=== PATIENT | male | born 1955 | race Caucasian/White ===

== ENCOUNTER 2023-09-05 12:38 | Emergency (ER) | payer OTHER, SELFPAY ==
[2023-09-05 12:43] VITALS: BP 196/109
--- NOTE | 2023-09-05 12:51 | ED.GENMED ---
History of Present Illness
General
Chief Complaint: Chest Pain
Time Seen by Provider: 09/05/23 12:51
Travel History
Have you had any contact with someone who has COVID-19?: No
Do you have any symptoms of coronavirus? Fever > 100 degrees, chills, cough, shortness of breath, sore throat, loss of taste or smell, muscle aches, or headache?: No
History of Present Illness
History of Present Illness:
HPI: Patient presents with chest discomfort. This started just before noon today (a little over an hour ago). His symptoms lasted only for a minute. It recurred again very briefly while in the parking lot just prior to coming into the hospital.
The patient states the pain was described as a stabbing kind of pain. He never had any pressure sensation. It was localized to the left upper chest. He had no pleuritic pain. He reports no trauma. He has no shortness of breath. He does have a
history of high blood pressure and reports family history of coronary disease. He intermittently takes Pepcid because of some stomach acid which he thinks may or may not be related to diltiazem use. 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 At 4 AM
today, he felt palpitations which were self-limited.
EXAM:
GENERAL: Well appearing in no distress
HEENT: Moist oral mucosa
CARDIOVASCULAR: No murmurs, normal heart rate with irregular rhythm, No chest wall tenderness
PULMONARY: No respiratory distress, breath sounds are clear and equal
ABDOMEN: Soft with no peritoneal signs, no tenderness
NEUROLOGIC: Excellent strength all extremities, no coordination deficits
PSYCHIATRIC: Appropriate mental status, normal insight and judgement
EXTREMITIES: Nontender, no edema, moves all extremities equally
SKIN: No rash, no lesions
ED COURSE:
1 PM: I initially evaluated patient
NUMBER AND COMPLEXITY OF PROBLEMS ADDRESSED AT THE ENCOUNTER
� Chronic conditions affecting care: A-fib, high blood pressure
� Acute Exacerbation and/or Progression of Chronic Illness: This is an acute problem
� Differential Diagnosis includes: ACS, noncardiac chest pain, anxiety, chest wall pain, highly doubt PE as the patient has normal vital signs and no pleuritic component with no shortness of breath
AMOUNT AND/OR COMPLEXITY OF DATA TO BE REVIEWED AND ANALYZED
� I performed an independent evaluation of and my interpretation is:
EKG: A-fib 74, nonspecific ST abnormality, baseline artifact, RSR' pattern, there is some lateral ST abnormality may be related to LVH without significant change from 07/09/2020
CT:
X-rays:
Laboratory Studies: White count normal, hemoglobin normal, troponin normal, chemistries unremarkable
Other:
� Review of other/old records: Patient was seen here a month ago with A-fib
� Clinical information was obtained by an independent historian: I spoke to the at bedside
� Prescriptions/Medications Considered but not given:
� Further testing considered but not performed:
RISK OF COMPLICATIONS AND/OR MORBIDITY OR MORTALITY OF PATIENT MANAGEMENT
� Social determinants of health affecting care: Lives at home
� Discussion with other providers:
� Escalation of care including admission/observation vs risk of discharge considered: Somewhat pleuritic but resolved chest discomfort after a minute. EKG unremarkable with exception of chronic A-fib. On reassessment at 3:05
PM, the patient remains symptom-free. I strongly encouraged that he follows up with his solar photovoltaic designer through [place]. Repeat troponin was obtained approximately 3 hours after symptoms onset. His symptoms only lasted for about a minute and other
than 1 brief additional episode, there has been no further symptoms. He remains chest pain-free. On reassessment at 3:55 PM he does also mention that he has been having ongoing upper quadrant discomfort for weeks intermittently. He has not had
recent endoscopy. He will follow-up with his GI doctor tomorrow and I have also encouraged him to try a 2-week course of lyuo-wmp-mywtxik omeprazole.
Past History
Past History
ED Past Medical History: HTN
ED Past Surgical History: Cardiac (ablation)
Social History
Tobacco: Non-smoker
Phy Exam
Physical Exam
Physical Exam:
See HPI
Scores
Heart Score for Chest Pain Patients
STEMI patient?: Not applicable
Course
Orders/Labs/Results
Orders:
Orders
09/05/23 12:40
Electrocardiogram (*1) Urgent
Reason for Study: Chest Pain
EKG- Treatment ONCE
09/05/23 13:48
Complete Blood Count/With Diff Urgent
Comprehensive Metabolic Panel Urgent
Magnesium Urgent
Troponin I Urgent
09/05/23 14:57
Troponin I Urgent
Abnormal Lab Results
09/05/23
13:48
MCH 31.7 H pg
(27.0-31.0)
Absolute Monos (auto) 0.7 H 10^3/uL
(0.1-0.6)
Absolute Eos (auto) 0.9 H 10^3/uL
(0-0.7)
Monocytes % 9.8 H %
(1.7-9.3)
Eosinophils % 13.4 H %
(0-6)
Magnesium 2.4 H mg/dl
(1.6-2.3)
09/05/23 13:48
09/05/23 13:48
Vital Signs
Initial and Last Documented VS:
Initial Vital Signs
Temp Pulse Resp BP Pulse Ox
98.2 F 78 18 196/109 99
09/05/23 12:43 09/05/23 12:43 09/05/23 12:43 09/05/23 12:43 09/05/23 12:43
Last Documented Vital Signs
Temp Pulse Resp BP Pulse Ox
98.2 F 68 13 154/100 99
09/05/23 12:43 09/05/23 14:45 09/05/23 14:45 09/05/23 14:00 09/05/23 12:43
*Critical Care Note
Total Time (30-74mins, 75-104mins- exclusive of procedures): Not Applicable
ED Attending Note
-
Portions of this chart may have been created with voice recognition software.� Occasional wrong word or��sound alike� substitutions may have occurred due to the inherent limitations of voice recognition software.
Discharge Plan
Departure
Patient Disposition: Home (Routine Discharge)
Date of Disposition: 09/05/23
Time of Disposition: 15:53
Patient with high blood pressure during this ER visit?: Yes
Discharge Problem:
Chest pain
Instructions: Chest Pain PCP Follow Up
Prescriptions:
No Action
lisinopril 20 mg Tablet
20 mg PO BID
clobetasol 0.05 % Cream
1 applic TOPICAL HS
calcium carbonate [Tums 500] 500 mg calcium (1,250 mg) Tablet,Chewable
500 mg PO DAILY PRN (Reason: stomach discomfort)
diltiazem HCl 30 mg Tablet
30 mg PO BID
Centrum Silver Tablet
1 tab PO DAILY
cholecalciferol (vitamin D3) 50 mcg (2,000 unit) Tablet
50 mcg PO DAILY
Eliquis 5 mg Tablet
5 mg PO BID
Referrals:
Adilia Mejia PA [Family Provider] -
Lucia Logan DO [Active] - Follow up in 2-3 days
Activity Restrictions/Additional Instructions:
Consider taking a 2-week course of ghsy-vyq-rgqcric omeprazole. Follow-up with your primary care doctor as your blood pressure has been high here and continue your blood pressure medication. I have also given you the contact information for a
local solar photovoltaic designer through [place] as well.
Interventions
Interventions:
*Risk Screen - Suicide Last Done: 09/05/23 12:43
*General Assessment Last Done: 09/05/23 13:51
*Neglect/Abuse Screening Last Done: 09/05/23 12:43
ED- Fall Risk Assessment Last Done: 09/05/23 13:51
*ED COVID-19 Vaccine History Last Done: 09/05/23 12:43
ED- Cardiac Assessment Last Done: 09/05/23 13:51
[2023-09-05 13:47] VITALS: BP 173/108
[2023-09-05 14:00] VITALS: BP 154/100
[2023-09-05 14:11] LABS: % Eosinophils 13.4 % (0-6); % Immature Granulocytes 0.4 % (0-0.5); % Lymphocytes 21.1 % (20.5-51.1); % Monocytes 9.8 % (1.7-9.3); % Neutrophils 54.3 % (42.2-75.2); Absolute Basophils 0.1 10^3/uL (0-0.2); Absolute Eosinophils 0.9 10^3/uL (0-0.7); Absolute Lymphocytes 1.4 10^3/uL (1.2-3.4); Absolute Monocytes 0.7 10^3/uL (0.1-0.6); Absolute Neutrophils 3.6 10^3/uL (1.4-6.5); Hematocrit 42.5 % (39.0-52.0); Hemoglobin 15.7 g/dL (13.0-18.0); Mean Corp Hgb Conc. 36.9 g/dL (33.0-37.0); Mean Corpuscular Hgb 31.7 pg (27.0-31.0); Mean Corpuscular Volume 85.9 fL (80.0-94.0); Mean Platelet Volume 8.7 fL (7.4-10.4); Nucleated Red Blood Cells % 0 % (-); Platelet Count 213 10^3/uL (130-400); Red Blood Cell Count 4.95 10^6/uL (4.70-6.10); White Blood Cell Count 6.7 10^3/uL (4.8-10.8)
[2023-09-05 14:33] LABS: Troponin I < 0.012 ng/ml
[2023-09-05 14:46] LABS: ALT (SGPT) 16 U/L (0-50); AST (SGOT) 25 U/L (17-59); Albumin 4.4 g/dl (3.5-5.0); Alkaline Phosphatase 79 U/L (38-126); Blood Urea Nitrogen 19 mg/dl (9-20); Calcium 9.1 mg/dl (8.4-10.2); Carbon Dioxide 28 mmol/L (22-30); Chloride 105 mmol/L (98-107); Glucose 90 mg/dl (70-99); Magnesium 2.4 mg/dl (1.6-2.3); Potassium 3.6 mmol/L (3.5-5.1); Sodium 138 mmol/L (135-145); Total Bilirubin 0.9 mg/dl (0.2-1.3); Total Protein 6.6 g/dl (6.3-8.2); eGFR > 60.00
[2023-09-05 14:52] VITALS: BP 155/111
[2023-09-05 15:41] LABS: Troponin I < 0.012 ng/ml
== END 2023-09-05 16:48 | disposition home or self-care (01) ==
LOC: EMR 12:38
PROVIDERS: Emergency Medicine; EMERGENCY PHYSICIAN Emergency Medicine; FAMILY PHYSICIAN Physician Assistant; REFERRING PHYSICIAN Internal Medicine Cardiovascular Disease
DX: R07.89 Other chest pain (principal); I10 Essential (primary) hypertension
CPT/HCPCS: 99284; 80053; 83735; 84484; 85025; 93005

== ENCOUNTER 2023-12-12 05:58 | Day surgery (SDC) | payer OTHER, SELFPAY ==
[2023-11-22 12:32] VITALS: BMI 23.6
[2023-11-22 13:35] LABS: ALT (SGPT) 23 U/L (0-50); AST (SGOT) 24 U/L (17-59); Albumin 4.4 g/dl (3.5-5.0); Alkaline Phosphatase 68 U/L (38-126); Blood Urea Nitrogen 18 mg/dl (9-20); Calcium 9.1 mg/dl (8.4-10.2); Carbon Dioxide 33 mmol/L (22-30); Chloride 102 mmol/L (98-107); Estimated Creatinine Clearance 76 ml/min; Glucose 91 mg/dl (70-99); Magnesium 2.2 mg/dl (1.6-2.3); Potassium 3.7 mmol/L (3.5-5.1); Sodium 139 mmol/L (135-145); Total Bilirubin 0.7 mg/dl (0.2-1.3); Total Protein 6.6 g/dl (6.3-8.2); eGFR > 60.00
[2023-11-22 13:36] LABS: % Basophils 0.9 % (0-2); % Eosinophils 8.5 % (0-6); % Immature Granulocytes 0.4 % (0-0.5); % Lymphocytes 23.1 % (20.5-51.1); % Monocytes 9.7 % (1.7-9.3); % Neutrophils 57.4 % (42.2-75.2); Absolute Basophils 0.1 10^3/uL (0-0.2); Absolute Eosinophils 0.5 10^3/uL (0-0.7); Absolute Lymphocytes 1.3 10^3/uL (1.2-3.4); Absolute Monocytes 0.5 10^3/uL (0.1-0.6); Absolute Neutrophils 3.2 10^3/uL (1.4-6.5); Hematocrit 43.3 % (39.0-52.0); Hemoglobin 15.2 g/dL (13.0-18.0); Mean Corp Hgb Conc. 35.1 g/dL (33.0-37.0); Mean Corpuscular Hgb 31.4 pg (27.0-31.0); Mean Corpuscular Volume 89.5 fL (80.0-94.0); Mean Platelet Volume 9.5 fL (7.4-10.4); Nucleated Red Blood Cells % 0 % (-); Platelet Count 213 10^3/uL (130-400); Red Blood Cell Count 4.84 10^6/uL (4.70-6.10); Red Cell Dist. Width 13.6 % (11.5-14.5); White Blood Cell Count 5.6 10^3/uL (4.8-10.8)
[2023-11-22 13:38] LABS: PT 15.2 Sec (11.4-14.6)
[2023-12-12] VITALS (26 sets, daily range): BP systolic 127–197; BP diastolic 77–126; BMI 23.6
[2023-12-12 08:50] LABS: ACT-LR - POC 236 Seconds (116-155)
[2023-12-12 09:06] LABS: ACT-LR - POC 384 Seconds (116-155)
[2023-12-12 09:21] LABS: ACT-LR - POC 372 Seconds (116-155)
[2023-12-12 09:43] LABS: ACT-LR - POC 321 Seconds (116-155)
[2023-12-12 10:06] LABS: ACT-LR - POC 332 Seconds (116-155)
[2023-12-12 10:27] LABS: ACT-LR - POC 174 Seconds (116-155)
--- NOTE | 2023-12-12 10:38 | ITS.CL.ABL ---
Welding Machine Operator Gas Metal Arc - Ablation
Ablation
Procedure Report:
Primary Veterinary Technician: Luis A Vega MD
Procedure Date: 12/12/2023
Patient History:
Patient is a pleasant 60-year-old male with past medical history significant for hypertension, hypercholesterolemia, SVT status post ablation 1995, and symptomatic paroxysmal/early persistent atrial fibrillation.
See H&P for complete details.
Indication:
Symptomatic paroxysmal/early persistent atrial fibrillation
Recurrence after cardioversion
Arrhythmia Specific History:
Prior Medical Therapies for Rate and Rhythm Control:
X Beta-kennedi
X Calcium channel-kennedi
[ ] Amiodarone
[ ] Dronederone
[ ] Sotalol
[ ] Flecainide
[ ] Dofetilide
[ ] Options limited by bradycardia
[ ] Options limited by comorbid renal disease
Prior Procedural Therapies for AF/AFL:
X Cardioversion
[ ] Pulmonary Vein Isolation
[ ] Posterior Wall Isolation
[ ] Additional lines (Specify)
[ ] Surgical Quiñones-MAZE or PVI (Specify)
Procedure Performed:
X AF ablation procedure (03250) -- includes LA/CS pacing, trans-septal, 3D mapping, + ICE
[ ] +IV drug (35890)
[ ] +Other Arrhythmia (56792)
[ ] +Other AF Line/ablation (03878)
Risks and expected recovery has been explained in detail. Alternative options have been explored, and in a shared-decision making fashion we have decided that this was the most appropriate procedure.
Method
NPO status confirmed. Grounding pad applied. Defibrillator pads applied. Continuous surface ECG, pulse oximetry, and blood pressure were monitored. Procedure was performed under general anesthesia, with anesthesia services.
Both groins were clipped, prepped with Chloraprep, and draped in sterile fashion. Time out was called. Local anesthesia administered with bupivacaine. The right and left femoral veins were accessed for catheter placement, using ultrasound guidance,
micro-puncture needle/wire, and modified seldinger technique. 3 sheaths were placed. The following catheters were used:
[ ] Tacticath SE (D/F Curve) ablation catheter
X Viewflex 9Fr ICE catheter
X Inquiry decapolar 6Fr diagnostic catheter
[ ] CRD Hex 6Fr
[ ] Arctic Front Advance Cryoballoon ([ ]28mm[ ]23mm)
[ ] Achieve Advance mapping catheter ([ ]15mm[ ]20mm)
X FlexCath Contour 10 Fr with PulseSelect PFA Catheter
X Advisor HD Grid Mapping Catheter, SE
[ ] Acuson AcuNav 8 Fr ICE catheter
[ ]Other: [ ]
Intracardiac ultrasound (ICE) was carefully advanced into the right atrium to guide sheath placement over a J-wire, catheter placement, guide trans-septal puncture, identify potential complications, identify anatomic structures and ensure proper
contact between ablation catheter and tissue.
Heparin was given prior to trans-septal puncture. Heparin was given to achieve and maintain a target ACT of 300-400 seconds throughout the procedure.
Trans-septal access was performed under ICE guidance. The trans-septal puncture was performed with a SafeSept wire through a Brockenbrough needle assembly through the steerable sheath. The wire was visualized as it entered the LSPV and system
advanced under ICE guidance and fluoroscopy into the LA. The Brockenbrough needle assembly, SafeSept wire and sheath dilator were removed under negative pressure. LA pressure was measured and recorded.
ICE and 3D mapping was performed to identify relevant cardiac structures. A careful 3D map was created to assess for regions of low-voltage and abnormal electrogram signals using HD grid mapping catheter and PulseSelect catheter. Additional mapping
was performed as outlined below.
Prior to ablation, glycopyrrolate was provided. PulseSelect catheter was advanced over J-wire to the ostium of each vein. Pulmonary vein isolation was performed with ostial and antral lesions in a circumferential manner. Contact was visualized via
EAM, ICE, fluoroscopy, and EGM signals. Following completion of ablation lesions, sinus rhythm was restored with a 200J synchronized DCCV and a post-ablation voltage/activation map was performed in sinus rhythm. Entrance and exit block were
confirmed for each vein.
Catheter and sheath were removed from the left atrium and post-ablation intracardiac echo evaluation was consistent with pre-ablation with no changes and no pericardial effusion and there is no left atrial thrombus or left ventricle thrombus seen.
Electrophysiology study was performed. Hemostasis was obtained with figure of 8 stitch for each groin and with manual pressure. Protamine was used for reversal.
Estimated Blood Loss
5-10 mL
Complications
None
Fluoroscopy: 12.7 minutes; 55.42 mGy; DAP 6.67
Baseline Intervals:
Rhythm: AF
QRS: 83 ms
QT: 420 ms
QTc: 495 ms
Post-Procedure Intervals:
VT: 195 ms
QRS: 86 ms
QT: 446 ms
QTc: 453 ms
AVWB: 380 ms
AVERP: 600/350 ms
Recommendations
- Bedrest with straight-leg precautions as ordered
- Anticipate same day discharge if patient meeting clinical metrics
- Resume home medications as indicated
- Ok to resume anticoagulation tonight if patient and groin sites stable
- PPI daily for 30 days
- Plan for follow-up in office in 4-6 weeks
Jose M Trujillo DO
Clinical Cardiac Senior Talent Acquisition Specialist
cc: Luis A Vega MD; Jonathon Lopes MD
--- NOTE | 2023-12-12 11:40 | PTCARENOTE ---
total fluids given in ep lab
[2023-12-12] MEDS: FLOMAX 0.400000000000000022 MG PO (17:24)
[2023-12-12] MEDS: NSS 250 IV (18:04)
[2023-12-12] MEDS: COREG 3.125 MG PO (18:31)
[2023-12-12] MEDS: ZESTRIL 20 MG PO (18:32)
[2023-12-12] MEDS: ELIQUIS 5 MG PO (20:20)
[2023-12-12] MEDS: TYLENOL 650 MG PO (22:22)
[2023-12-13] VITALS (10 sets, daily range): BP systolic 121–191; BP diastolic 68–108; BMI 23.6
[2023-12-13 06:23] LABS: Hematocrit 36.1 % (39.0-52.0); Hemoglobin 12.9 g/dL (13.0-18.0); Mean Corp Hgb Conc. 35.7 g/dL (33.0-37.0); Mean Corpuscular Hgb 31.4 pg (27.0-31.0); Mean Corpuscular Volume 87.8 fL (80.0-94.0); Mean Platelet Volume 9.8 fL (7.4-10.4); Platelet Count 201 10^3/uL (130-400); Red Blood Cell Count 4.11 10^6/uL (4.70-6.10); Red Cell Dist. Width 13.4 % (11.5-14.5); White Blood Cell Count 11.6 10^3/uL (4.8-10.8)
[2023-12-13 07:01] LABS: Blood Urea Nitrogen 30 mg/dl (9-20); Calcium 8.7 mg/dl (8.4-10.2); Carbon Dioxide 25 mmol/L (22-30); Chloride 101 mmol/L (98-107); Estimated Creatinine Clearance 46 ml/min; Glucose 100 mg/dl (70-99); Magnesium 1.9 mg/dl (1.6-2.3); Potassium 3.1 mmol/L (3.5-5.1); Sodium 133 mmol/L (135-145)
--- NOTE | 2023-12-13 08:00 | PTCARENOTE ---
Patient received from night order selector, presents as assessed. Patient is alert and oriented x4, pleasant, cooperative. Tele NSR with occasional skipped beat. Lungs CTA room air. Abdomen soft non-tender. Urinal at bedside. Patient reports improvement in
voiding. Left and right groin checks maintained. at bedside. All questions answered to satisfaction. Patient offers no complaints at this time.
[2023-12-13] MEDS: ZESTRIL 20 MG PO (08:15)
[2023-12-13] MEDS: PROTONIX 40 MG PO (08:15)
[2023-12-13] MEDS: NSS 250 IV (08:15)
[2023-12-13] MEDS: KCL 260 MEQ IV (08:15)
[2023-12-13] MEDS: ELIQUIS 5 MG PO (08:15)
[2023-12-13] MEDS: COREG 3.125 MG PO ×2 (08:16→15:44)
[2023-12-13] MEDS: KCL 40 MEQ PO ×2 (08:16→14:49)
--- NOTE | 2023-12-13 09:36 | W.PN.CARDCBS ---
Addendum entered and electronically signed by Al Colón MD 12/13/23 14:46:
Patient seen, interviewed and examined by me.
Well-appearing, no acute distress
Regular rate and rhythm with normal S1 and S2, no S3 no S4. There is a grade 1/6 apical holosystolic murmur and no rubs. PMI is normally placed.
Lungs are clear to auscultation bilaterally without wheezes rales or rhonchi.
Abdomen soft nontender nondistended with normoactive bowel sounds
Extremities show trace pretibial edema bilaterally no clubbing or cyanosis.
Neurologic exam is grossly nonfocal.
There is mild bump in creatinine and drop in potassium. Review of his records show he has been borderline hypokalemic in the past.
We gave him potassium supplementation and also 500 cc of normal saline with subsequent laboratory studies showing improvement in potassium as well as improvement in creatinine.
He feels well and remains in sinus rhythm.
We will give him 40 more milliequivalents of potassium, encourage oral intake and allow discharge home. Repeat blood work is scheduled for next week.
Agree with advanced practice professionals assessment and plan as noted below.
Original Note:
Today's Communication / Plan
-
post ablation urinary retention, voiding
replete K, IVF for ARACELI
reheck labs at 1pm
poss home later today
Impression / Plan
-
PCP: Jonathon Lopes MD
CDY: Luis A Young MD
60-year-old male with past medical history significant for hypertension, hypercholesterolemia, SVT status post ablation 1995, and symptomatic paroxysmal/early persistent atrial fibrillation.
Impression:
Symptomatic paroxysmal Afib
urinary retention post procedure
Hypokalemia
ARACELI
SVT prior ablation 1995
HTN
HLD
BPH/elevated PSA
Plan:
post PFA/PVI 12/12/23
had urinary retention post procedure requiring st cath x1, voiding ~100cc at a time this am
Cr elevated to 1.5 this am, will give 500cc IVF bolus
K 3.1 this am, replete with IV/PO, recheck at 1pm today
continue OAC Eliquis no hematuria
PPI x 30 days
BP improved with resuming lisinopril and carvedilol, continue to trend
Activity restrictions reviewed
will need oupt f/u with urology (was switching to , will give urologist name)
f/u DCA 2 mo
If labs improved, d/c home with repeat BMP in 1 week
oob ambulate
Progress Note - Operating Engineer
Subjective
Date of Service: December 13, 2023
no cp, sob, voiding in small amounts doesn't feel like emptying fully
Objective
Labs:
12/13/23 04:46
Labs
Hgb 12.9 g/dL (13.0-18.0) L 12/13/23 04:46
Hct 36.1 % (39.0-52.0) L 12/13/23 04:46
Plt Count 201 10^3/uL (130-400) 12/13/23 04:46
PT 15.2 Sec (11.4-14.6) H 11/22/23 12:48
INR 1.20 11/22/23 12:48
Sodium 133 mmol/L (135-145) L 12/13/23 04:46
Potassium 3.1 mmol/L (3.5-5.1) L 12/13/23 04:46
BUN 30 mg/dl (9-20) H 12/13/23 04:46
Creatinine 1.5 mg/dL (0.7-1.3) H 12/13/23 04:46
Glucose 100 mg/dl (70-99) H 12/13/23 04:46
Vital Signs and I&O:
Vital Signs
Temp Pulse Resp BP Pulse Ox
98.5 F 67 18 157/96 96
12/13/23 07:35 12/13/23 08:16 12/13/23 07:35 12/13/23 08:16 12/13/23 07:35
Vital Signs
Temp Pulse Resp BP Pulse Ox
98.5 F 67 18 157/96 96
12/13/23 07:35 12/13/23 08:16 12/13/23 07:35 12/13/23 08:16 12/13/23 07:35
Intake & Output
12/11/23 12/12/23 12/13/23 12/14/23
06:59 06:59 06:59 06:59
Intake Total 3640 / 3640
Output Total 1125 / 1125
Balance 2515 / 2515
Physical Exam
Physical Exam
NAD< AOX3
S1, S2, RRR
CTAB, non labored
SNTND Bsx4
b/l groins c/d/i no HT< soft
--- NOTE | 2023-12-13 12:00 | CM ---
CM following for DC planning needs.
Met w/ patient, spouse at bedside.
Pt. observed walking halls earlier ad elizabeth.
Pt. is completely indep. at baseline and today.
Antic. DC to home, no needs.
Will remain avail.
[2023-12-13] MEDS: APRESOLINE 10 MG IV (13:29)
[2023-12-13 13:41] LABS: Blood Urea Nitrogen 30 mg/dl (9-20); Calcium 8.9 mg/dl (8.4-10.2); Carbon Dioxide 25 mmol/L (22-30); Chloride 100 mmol/L (98-107); Estimated Creatinine Clearance 49 ml/min; Glucose 119 mg/dl (70-99); Potassium 3.3 mmol/L (3.5-5.1); Sodium 133 mmol/L (135-145); eGFR 54.75
--- NOTE | 2023-12-13 14:48 | ITS.CL.ABL ---
Addendum entered and electronically signed by Al Colón MD 12/14/23 10:05:
Addendum, this report does not belong to patient Evelio Menon. It belongs to another patient and was mistakenly put into his chart.
Original Note:
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
Ablation
Procedure Report:
ELECTROPHYSIOLOGIC STUDY AND POSSIBLE ABLATION
DATE: December 13, 2023
Primary Care Provider: Dr. Al Brown
Primary welding machine operator helper gas: Dr. Josafat Gibbons
INDICATION:
Symptomatic Atrial Fibrillation.
Paroxysmal
HISTORY: See H and P.
Symptomatic AF, poorly controlled with attempted medical therapy.
He is referred from Dr. Josafat Gibbons regarding symptomatic paroxysmal atrial fibrillation. ��He has a complex past medical history which includes HFrEF, nonischemic cardiomyopathy with ejection fraction noted to have improved from EF 20 to 25%,
recovered to 45-50% as evidenced by echocardiogram 07/12/2023. There is also mild mild MR.
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 There have been some discussions regarding the potential benefit of left atrial appendage occlusion to reduce
his long-term risk to oral anticoagulation.
He has peripheral arterial disease with Left subclavian artery stenosis, bilateral carotid artery stenosis, bilateral SFA occlusion and distal reconstitution, status post left CONFERENCE MANAGER endarterectomy
He has a history of COPD
He has a history of tobacco abuse as well as alcohol use disorder.
HAS-BLED: 3
Age
H/O Bleeding
Alcohol use
CHADSVASc: 4
CHF, HFmrEF
HTN
Age
Vascular Dz: PAD
PRESENTING RHYTHM: SRF
HISTORY: See H and P.
Symptomatic AF, poorly controlled with attempted medical therapy.
ANTICOAGULATION: Rivaroxaban
'TIME-OUT': called and confirmed.
SEDATION/ANESTHESIA: provided via the anesthesia department using general anesthesia.
PROCEDURE:
Ultrasound Guidance performed by sd was utilized for femoral venous Vascular Access b/l.
A decapolar CS catheter was placed within the CS for mapping and pacing.
The intracardiac ultrasound catheter was positioned in the RA for continuous intracardiac ultrasound imaging.
Heparin bolus and infusion to target ACT at 300 -350 seconds was administered. Transseptal puncture was performed. This entailed advancing a sheath with dilator into the superior vena cava and withdrawing both (monitoring intracardiac ultrasound,
fluoroscopy and tip pressure) with the tip oriented toward the atrial septum. The fossa ovalis was engaged (indicated by sudden displacement of the sheath tip as well as tenting of the fossa seen on intracardiac ultrasound).
AcTweetPhoto transseptal system was used. Left atrial catheter position was confirmed by echocardiographic imaging, pressure monitoring (LA mean pressure 15 mm Hg) and fluoroscopy. The sheath was advanced over the dilator and positioned in the left
atrium.
The multipolar mapping catheter was initially positioned through the transseptal sheath for high density mapping.
Geometry and voltage mapping was performed using the Brightstorm multipolar grid catheter as well as the Hobo Labstronic Pulse Select PFA catheter and Navex 3-D electroanatomical mapping.
The medtronic Pulse Select PFA catheter and system was used for cardiac ablation. Catheter positioning was guided and confirmed using both I.C.E. and fluoroscopy.
PV isolation approach was used to electrically isolate each PV ostia. Additional ablation lesion set was performed to achieve wide area circumferential ablation once ostial isolation was achieved.
Mapping with the multipolar mapping catheter Joaquin Grid was repeated at each PV ostia to assess for any 're connect'. Ostial isolation remains however there is lack of wide area circumferential ablation at the right superior vein posteriorly.
Therefore the pulsed electric field ablation catheter was then substituted and additional lesions were given to achieve wide area circumferential ablation at the right superior pulmonary vein.
Programmed electrical stimulation with burst atrial pacing as well as atrial decremental extrastimuli was performed and there was absence of any induced arrhythmias.
I.C.E. :
Pre-Ablation Post-Ablation
LVEF: 50 % 50 %
WMA: none none
Pericardial effusion: none none
COMPLICATIONS:
SUMMARY:
- Mapping and ablation to isolate the PVs
- Additional AF ablation set after PVI.
- 3-D Electroanatomical Mapping
- Intracardiac Ultrasound
Post ablation, I discussed today's findings and results with the patient's daughter.
RECOMMENDATIONS:
- Observe in monitored bed.
- Maintain oral anticoagulation.
- He is typically on Lasix 80 mg daily. Will make sure he gets 80 mg orally tonight, tomorrow he will take 80 mg twice daily and then go back to 80 mg once daily.
- Continue cardiovascular care with Dr Gibbons
Copy to:
Dr. Al Brown
Dr. Josafat Gibbons
--- NOTE | 2023-12-13 16:38 | W.DS.TRANS ---
DC Summary - Care Program Resident
-
Discharge Instructions:
Sleep Apnea Risk Intermediate
Discharge Diagnosis/Procedures Afib post ablation
Diet Low Cholesterol
Driving Restrictions No driving for 24 hours
Blood Work BMP in 1 week
Instructions: Pantoprazole
Stand-Alone Forms: DC Instructions- Cath/EP Lab
Changes to Home Medications: Yes
Discharge Medications:
DC Medications w/original date entered in [employer]
apixaban 5 mg tablet (Eliquis) 5 mg PO BID 09/05/23
calcium carbonate 500 mg PO DAILY PRN GERD 09/05/23
cholecalciferol (vitamin D3) 50 mcg (2,000 unit) tablet 50 mcg PO DAILY 09/05/23
clobetasol 0.05 % topical cream 1 applic topical HS apply to B/L hands 09/05/23
lisinopril 20 mg tablet 20 mg PO BID 09/05/23
xlayxoyxayiv-esbewtft-bbdlym tablet 1 tab PO DAILY 09/05/23
fluticasone propionate 50 mcg/actuation nasal spray,suspension (Flonase Allergy Relief) 1 spray intranasal PRN PRN seasonal allergy 11/09/23
pantoprazole 40 mg tablet,delayed release (Protonix) 40 mg PO DAILY #30 tabs 12/12/23
carvedilol 6.25 mg tablet 6.25 mg PO BID #60 tabs 12/13/23
Home Medication Changes
increase carvedilol to 6.25 bid
Pending Results: No
== END 2023-12-13 18:27 | disposition home or self-care (01) ==
LOC: CATH 05:58
PROVIDERS: Nurse Practitioner Adult Health; ATTENDING PHYSICIAN Internal Medicine Cardiovascular Disease; FAMILY PHYSICIAN Physician Assistant; OTHER PHYSICIAN Internal Medicine Cardiovascular Disease
DX: I48.19 Other persistent atrial fibrillation (principal); I47.10 Supraventricular tachycardia, unspecified; R33.8 Other retention of urine; I10 Essential (primary) hypertension; N99.89 Other postprocedural complications and disorders of genitourinary system; Y83.8 Other surgical procedures as the cause of abnormal reaction of the patient, or of later complication, without mention of misadventure at the time of the procedure; Z88.8 Allergy status to other drugs, medicaments and biological substances; Z79.899 Other long term (current) drug therapy; E78.5 Hyperlipidemia, unspecified; Z98.890 Other specified postprocedural states; Z82.49 Family history of ischemic heart disease and other diseases of the circulatory system; E78.00 Pure hypercholesterolemia, unspecified; N17.9 Acute kidney failure, unspecified; Z79.01 Long term (current) use of anticoagulants
CPT/HCPCS: C1732; C1894; C1769; C1893; C1733; C1759; 36415; 75572; 76937; 80048; 80053; 83735; 85025; 85027; 85347; 85610; 86850; 86900; 86901; 93005; 93656; Q9967

== ENCOUNTER → 2024-01-09 08:11 | Outpatient (REF) | payer OTHER, SELFPAY | LOC: HWRAD 08:11 | PROVIDERS: ATTENDING PHYSICIAN Physician Assistant | DX: R10.12 Left upper quadrant pain (principal) | CPT/HCPCS: 76700 ==

== ENCOUNTER → 2024-02-04 19:42 | Outpatient (REF) | payer OTHER, SELFPAY | LOC: MRI 3T 19:42 | PROVIDERS: ATTENDING PHYSICIAN Specialist; FAMILY PHYSICIAN Physician Assistant | DX: R97.20 Elevated prostate specific antigen [PSA] (principal) | CPT/HCPCS: 72197; A9575 ==

== ENCOUNTER → 2024-03-05 16:52 | Outpatient (REF) | payer OTHER, SELFPAY ==
[2024-03-05 17:43] LABS: Urine Albumin Negative (Neg - Trace); Urine Bilirubin Negative (Negative); Urine Character Clear (Clear); Urine Color Yellow; Urine Glucose Negative (Negative); Urine Ketone Negative (Negative); Urine Leukocyte Negative (Negative); Urine Nitrite Negative (Negative); Urine Occult Blood 3+ (Negative); Urine Urobilinogen Negative (Neg - 1+)
[2024-03-05 18:01] LABS: Urine Bacteria Few (Negative); Urine Squamous Cell 0-2 /LPF (Few); Urine White Cell 0-2 /HPF (0-5)
== END ==
LOC: REG 16:52
PROVIDERS: ATTENDING PHYSICIAN Specialist
DX: N39.0 Urinary tract infection, site not specified (principal)
CPT/HCPCS: 81003; 81015; 87086

== ENCOUNTER → 2024-03-12 08:51 | Outpatient (REF) | payer OTHER, SELFPAY | LOC: RCS 08:51 | PROVIDERS: ATTENDING PHYSICIAN Internal Medicine Cardiovascular Disease; FAMILY PHYSICIAN Family Medicine | DX: I25.10 Atherosclerotic heart disease of native coronary artery without angina pectoris (principal); R94.31 Abnormal electrocardiogram [ECG] [EKG] | CPT/HCPCS: 93017; 93350 ==